=== PATIENT | male | born 1975 | race Caucasian/White ===

== ENCOUNTER 2020-10-15 13:29 | Outpatient (RCR) | payer OTHER, SELFPAY | END 2020-12-04 23:59 | LOC: IMMUN 13:29 | PROVIDERS: PCP Family Medicine; Visit Provider Family Medicine | DX: Z23 Encounter for immunization (principal) | CPT/HCPCS: 0001A; 91300 ==

== ENCOUNTER → 2022-07-14 | Outpatient (CLI) | payer OTHER, SELFPAY | END | disposition home or self-care (01) | LOC: SL 20:02 | PROVIDERS: PCP Family Medicine; Referring Provider Internal Medicine Pulmonary Disease; Visit Provider Internal Medicine Pulmonary Disease | DX: G47.10 Hypersomnia, unspecified (principal) | CPT/HCPCS: 95810 ==

== ENCOUNTER → 2022-08-18 | Outpatient (CLI) | payer OTHER, SELFPAY | END | disposition home or self-care (01) | LOC: SL 19:57 | PROVIDERS: PCP Family Medicine; Referring Provider Internal Medicine Pulmonary Disease; Visit Provider Internal Medicine Pulmonary Disease | DX: G47.10 Hypersomnia, unspecified (principal) | CPT/HCPCS: 95811 ==

== ENCOUNTER → 2023-06-28 | Outpatient (CLI) | payer OTHER, SELFPAY ==
[2023-06-28 16:23] LABS: Absolute Lymphocyte Count 2.54 X10^3/uL (0.83-4.51); Absolute Neutrophil Count 4.7 X10^3/uL (2.0-7.7); Basophil# 0.04 X10^3/uL; Basophil% 0.5 % (0-1); Eosinophil# 0.12 X10^3/uL; Eosinophils% 1.5 % (0-5); Hemoglobin 16.1 g/dL (13.0-16.5); Lymphocyte # 2.54 X10^3/ul (0.83-4.51); Lymphocyte % 31.9 % (19-41); Mean Corp Hgb Conc 32.9 g/dL (32-36); Mean Corpuscular Volume 88.1 fL (80-94); Monocyte# 0.56 X10^3/uL; NRBC Flagged by Analyzer 0 % (0-5); Neutrophil # 4.67 X10^3/uL (2.7-7.7); Neutrophil % 58.8 % (47-70); Platelet Count 235 K/mm3 (150-450); RBC Distribution Width SD 38.8 fl (35.1-43.9); Red Blood Count 5.56 M/mm3 (4.6-6.2)
[2023-06-28 17:11] LABS: ALB/GLOB Ratio 1.2 RATIO (0.9-2.4); AST(SGOT) 57 U/L (15-37); Alanine Aminotransfer ALT/SGPT 110 U/L (16-61); Albumin, Serum 4.2 g/dL (3.2-5.0); Alkaline Phosphatase 59 U/L (45-117); Anion Gap 4 (5-15); BUN 11 mg/dL (7-18); BUN/Creat Ratio 11.4 RATIO (10-20); Calcium,Total 9.6 mg/dL (8.5-10.1); Chloride 105 mmol/L (98-107); Cholesterol 178 mg/dL (200); Creatinine, Serum 0.96 mg/dL (0.70-1.30); EST Glomerular Filtration Rate 89 mL/min (>60); Est Glom Filt Rate - Afr Amer 108 mL/min (>60); Globulin 3.4 g/dL (2.2-4.2); Glucose 84 mg/dL (74-106); High Density Lipoprotein 57 mg/dL; Potassium 3.8 mmol/L (3.5-5.1); Protein, Total 7.6 g/dL (6.4-8.2); Sodium Level 138 mmol/L (136-145); Thyroid Stim Hormone (TSH) 1.41 uIU/mL (0.358-3.74); Triglycerides 75 mg/dL; Very Low Density Lipoprotein 15 mg/dL (5-40)
--- OUTSIDE RECORDS SUMMARY | 2023-06-28 18:54 | XMS RPT_ITS | CCD ---
Author Name Unknown Address [address] [place] [address] Organization [facility] Care Team Providers Care Websphere Administrator Name Role Phone Brent NICE, Olivia Chowdhury Primary Care Provider RUIZ LAWTON DO Attending Unavailable RUIZ LAWTON DO Admitting Unavailable HUDDLESTON [phone], TORI Consulting Unavail able OLIVIA KENNEDY Primary Care Unavailable MADISON IMPLEMENTATION ARCHITECT, KAYLEE Consulting Unavailable ALEJANDRA [phone], CHRISTIANA Márquez Consulting Unavailable OLIVIA KENNEDY Consulting Unavailable Olivia Kennedy MD Unavailable Maxx NICE, Dr. Blancas ([facility]) Unavailable [phone] Dr. Efren Velazquez MD Unavailable Candi Hyde MD Unavailable Susie Meyers PA-C Unavailable Jimmy CLERK OF COURT, Radha Francisco Unavailable Unavailable Angelica Kothari MA Unavailable Unavailable Yaneli Hinojosa PA-C Unavailable Pushpa TANNER, Jonathan Francisco Unavailable Amelia Richards MA Unavailable Unavailable Abhi ART, Annamaria Unavailable Unavailable Yaneli Li RN Unavailable Unavaila neeta Peck LPN, Jose Unavailable Unavailable Indira Sousa PA-C Unavailable [phone] Kathy DE LUNAN, Leslie Donald Unavailable Unavailab juwan Veras CLERK OF COURT, Juan Wyman Unavailable Unavailable Benjamín DE LUNAN, Cassidy Unavailable Unavailabl e Unavailable Unavailable Allergies Allergy Classification Reported Allergen(s) Allergy Type Date of Onset Reaction(s) Facility (1 source) prednisoLONE Drug Allergy 11-19-2015 Diarrhea [facility] Medications Completed/Discontinued Medications Medication Drug Class(es) Dates Sig (Normalized) Sig (Original) amoxicillin 875 mg / clavulanate 125 mg oral tablet (2 sources) Penicillin-class Antibacterial Start: 12-30-2022 End: 01-09-2023 amoxicillin 875 mg-potassium clavulanate 125 mg tablet ; 1 (one) tablet two times daily for 10 days Quantity: 20 {Tablet} Refills: 0 Ordered: 30-Dec-2022 FLORES Meyers Start: 30-Dec-2022 End: 09-Jan-2023 Status: Inactive Problems Active Problems Problem Classification Problem Date Documented Da te Episodic/Chronic Abdominal hernia (3 sources) Right inguinal hernia ; Translations: [Unilateral inguinal hernia, without obstruction or gangrene, not specified as recurrent] 05-02-2019 Episodic Acquired foot deformities (1 source) Talipes cavus; Translations: [Congenital pes cavus, right foot] Episodic Acquired foot deformities (1 source) Talipes planus; Translations: [Flat foot [pes planus] (acquired), left foot] Episodic Conditions associated with dizziness or vertigo (4 sources) Dizziness; Translations: [Dizziness and giddiness] 06-27-2023 Episodic Female infertility (3 sources) Infertile; Translations: [Infertility, female, of unspecified origin] 06-27-2023 Chronic Fever of unknown origin (2 sources) Fever; Translations: [Fever, unspecified] 05-02-2019 Episodic Influenza (2 sources) Influenza; Translations: [Influenza due to unidentified influenza virus with other respiratory manifestations] 08-27-2015 Episodic Lymphadenitis (2 sources) Axillary lymphadenopathy; Translations: [Localized enlarged lymph nodes] 05-02-2019 Episodic Other and unspecified benign neoplasm (2 sources) Hemangioma; Translations: [Hemangioma unspecified site] 05-02-2019 Episodic Other injuries and conditions due to external causes (2 sources) Unspecified injury of nose, initial encounter; Translations: [UNSPECIFIED INJURY NOSE INITIAL ENC] Onset: 12-31-2021 Episodic Other lower respiratory disease (2 sources) Snoring; Translations: [Snoring] 06-27-2023 Episodic Other non-traumatic joint disorders (1 source) Arthralgia of the ankle and/or foot; Translations: [Pain in right ankle and joints of right foot] Episodic Other nutritional; endocrine; and metabolic disorders (2 sources) Body mass index 30+ - obesity; Translations: [Body mass index (BMI) 30.0-30.9, adult] 05-02-2019 Chronic Other nutritional; endocrine; and metabolic disorders (2 sources) Overweight in adulthood with body mass index of 25 or more but less than 30; Translations: [Body mass index (BMI) 28.0-28.9, adult] 05-02-2019 Episodic Other screening for suspected conditions (not mental disorders or infectious disease) (15 sources) Other specified abnormal findings of blood chemistry; Translations: [Other abnormal blood chemistry] 06-27-2023 Episodic Other skin disorders (4 sources) Sebaceous cyst of skin; Translations: [Sebaceous cyst] 05-02-2019 Episodic Other upper respiratory disease (2 sources) Nasal congestion; Translations: [Nasal congestion] 06-27-2023 Episodic Other upper respiratory infections (2 sources) Upper respiratory infection; Translations: [Acute upper respiratory infection, unspecified] 12-30-2022 Episodic Residual codes; unclassified (2 sources) Influenza vaccination declined; Translations: [Immunization not carried out because of patient refusal] 05-02-2019 Episodic Spondylosis; intervertebral disc disorders; other back problems (2 sources) Lumbar radiculopathy; Translations: [Radiculopathy, lumbar region] 06-27-2023 Episodic Unclassified (1 source) buldging disc - pt says he has chronic problems with his back, but today his lwoer back started to hurt pt said his back went out this am-- he left workpt then went to chiro in [facility], he did xrays and called it a disc bulge - they did xrays there he told them he needed a steroid for inflammation reviewed by [facility] 03-01-2021 Unclassified (1 source) Well adult male - The patient feels well with minor complaints (states that he has back issues but otherwise feels good. Sees chiropractor to manage these back problems.), has good energy level and is sleeping well (will wake up once a night to use the bathroom). The patient has a balanced diet and takes no supplemental vitamins & iron. The patient exercises none (is active at work). The patient sleeps 8 hours per night. Note for Well adult male : Weight is down to 206 today, Pt has lost 32lbs since 03/2020.Is fasting today for labs. Would like a copy of H&P and also a copy of lab results mailed to him for his workplace. 01-22-2021 Viral infection (2 sources) Disease caused by 2019-nCoV; Translations: [COVID-19] 06-27-2023 Episodic Past or Other Problems Problem Classification Problem Date Documented Da te Episodic/Chronic Unclassified (1 source) Dizziness - The onset of the dizziness has been gradual and has been occurring in an intermittent pattern for 1 week (More persistent in the last week, but started 2-3 weeks ago.). The course has been recurrent. The dizziness is characterized as lightheadedness and feeling in the head. The dizziness is precipitated by position change and standing suddenly. There has been no associated nausea, vomiting, headache, fever, upper respiratory infection symptoms, ear pain, ear fullness, neck pain, neck stiffness or visual changes. There has been no associated anxiety, fever, headache, loss of balance, loss of hearing, nausea, palpitations, syncope or vomiting. Note for Dizziness : Patient reports that his symptoms are usually worse in the morning.He reports that it feels like he is floating. 06-27-2023 Unclassified (1 source) Cold Symptoms - Symptoms include sneezing, nasal congestion, runny nose, sore throat, productive cough and facial pain, but do not include ear pain, dry cough, wheezing, fever, chills, general malaise or headache. The onset was gradual 2 week(s) ago. The symptoms occur frequently. The patient describes this as moderate in severity and unchanged. Current treatment includes non-prescription cold medication, allergy medications and home remedies. The patient has been exposed to an individual with similar symptoms (Patient's ). Patient denies history of seasonal allergies, recurrent sinusitis, recurrent strep pharyngitis, asthma, tonsillectomy or recurrent ear infections. 12-30-2022 Unclassified (1 source) Cold Symptoms - Symptoms include nasal congestion, runny nose, sore throat, fever and facial pain. The onset was 1 week(s) ago. The patient describes this as mild. Current treatment includes non-prescription cold medication (OTC cold medication). 11-21-2022 Unclassified (1 source) Follow up laboratory test results - Lab results returned on : (06-17-22) . Note for Laboratory test results follow-up : Abnormal ALT. Had left side back pain for a few days which has now resolved. 08-09-2022 Unclassified (1 source) Well adult male - The patient feels well with minor complaints, has good energy level and is sleeping well ( had noticed that tosses and turns alot during the night. He reports that this turning does not often wake him. He also denies any jerking or uncontrolled movements of his legs that wake him. He does snore. He wears the breathe right strips that help with the snoring. He does not wake up during the night gasping and his has not noted him stop breathing during his sleep. He reports that he usually does not wake up often during the night and feels resting when he wakes in the morning. Would like to discuss having a possible sleep study test done at [facility]-- works there.). The patient has a balanced diet and takes supplemental vitamins (Multivitamin, CoQ10.). The patient does not exercise. The patient sleeps 8 hours per night. Note for Well adult male : Last Lipid and CMP 01/2021.No previous colonoscopy. He recently had labs done through his workplace. Will be having this done again in Jun 2022. Is fasting today. 03-18-2022 Unclassified (1 source) Diarrhea - The onset of the diarrhea has been acute and has been occurring in an intermittent pattern for 2 weeks. The course has been recurrent. The stools are watery. The frequency of bowel movements has been per day. The symptoms have been associated with vomiting (September 20), while the symptoms have not been associated with abdominal pain or nausea. Note for Diarrhea : Tested positive for Covid last week as did his ( she had resp sx ) reviewed by [facility] 10-12-2021 Unclassified (1 source) Well adult male - The patient feels well with no complaints, has good energy level and is sleeping well. The patient has a balanced diet and takes no supplemental vitamins & iron. The patient does not exercise. The patient sleeps 8 hours per night. Note for Well adult male : has no concerns for today. Here for a wellness exam for workplace. Is fasting today.Reviewed by Susie Meyers PA-C. 03-30-2020 Unclassified (1 source) Dizziness - The onset of the dizziness has been acute and has been occurring in a persistent pattern for 3 days. The course has been increasing. The dizziness is characterized as lightheadedness ( feels like he is floating ), spinning of the environment and feeling in the head. The dizziness is precipitated by boat ride (was on ship for 9 days - dizziness did not start through until he was off the ship for 3 days). There has been no associated nausea, vomiting, headache, fever, upper respiratory infection symptoms, tinnitus, ear pain, ear fullness, neck pain, neck stiffness, visual changes, facial paralysis or falling episodes. The dizziness is exacerbated by standing. There has been no associated diplopia, facial paralysis, fever, headache, loss of balance, palpitations, paresthesia, seizures, syncope or tinnitus. 05-02-2019 Unclassified (1 source) lumps under arm pits - Patient is here complaining of lumps in his armpits since the weekend. On Monday he started with a fever (around 101) - has been having this intermittently with night sweats. Weight is down 7 pounds (has been using air fryer rather than frying foods) since May. He started taking ibuprofen, tylenol, and emergen-C. Has taken ibuprofen twice today and has felt really good. Swelling and pain is going down in the armpits. No recent cold symptoms.No cat scratches.No tick bites. Swam in a pool recently.Prediabetic on last labs. 10-13-2017 Unclassified (1 source) Follow up laboratory test results - Lab results returned on : (04/2017) . Note for Laboratory test results follow-up : Had lipid and glucose thorugh work. Would like to discuss results. reviewed by [facility] 05-23-2017 Unclassified (1 source) Evaluate Lesions - Pt here today to have couple lesions evaluated. Has 1 on upper right side of neck. He noticed this last week and it had bigger and more inflamed. Today it looks dried and scaly. Not as painful as it had been. The other lesion is on top of left side of scalp. He states that he has had this one for awhile but did not become inflamed until this past Monday. It did appear larger and had a white center until it drained on Monday. This one is still sore and appears to be dry and scabbed over. He has not used anything on this other than keeping them clean and dry. reviewed by [facility] 03-07-2016 Unclassified (1 source) Cold Symptoms - Symptoms include nasal congestion, runny nose, dry cough, fever, chills, general malaise and facial pain, but do not include ear pain or sore throat. The onset was gradual 4 day(s) ago. The symptoms occur constantly. The patient describes this as moderate in severity and worsening. Current treatment includes non-prescription cold medication (dayquil and theraflu). Risk factors do not include smoking. The patient has been exposed to an individual with similar symptoms, but has not been exposed to secondhand smoke. Patient denies history of tonsillectomy. 08-27-2015 Unclassified (1 source) Cold Symptoms - Symptoms include runny nose, sore throat, productive cough, fever (low grade), chills and general malaise, but do not include ear pain. The onset was sudden 5 day(s) ago. The symptoms occur constantly. The patient describes this as moderate in severity and unchanged. Note for Upper respiratory infection : Was to [facility] yesterday and given prescription for Zpack 10 day course. reviewed by B 06-24-2014 Unclassified (1 source) Sebaceous Cyst Removal - Sebaceous Cyst on back of head. Here for removal. See previous note 07-02-2013 Unclassified (1 source) Cyst on head - Cyst on back of head for several years and getting larger. Would also like to have mole on back of head checked. Both have been present for severalyears. He alsoc/o a lumpin the R groin for severalyears , rarely painful. He suspects a hernia. 06-26-2013 Results Test Name Value Interpretation Reference Range Facil ity Vital Signs Date Time Vital Sign Value Performing Clinician Faci lity 06-27-2023 15:25-0500 Diastolic blood pressure 78 mm[Hg] Amelia Richards MA [facility], [employer] [facility] [employer]. Encounters Encounter Date Encounter Type Care Provider Facility Start: 06-27-2023 End: 06-27-2023 Office outpatient visit 15 minutes Olivia Kennedy MD [facility] Start: 12-30-2022 End: 12-30-2022 Office outpatient visit 15 minutes Olivia Kennedy MD Work Phone: [employer] Start: 12-30-2022 End: 12-30-2022 Orders Olivia Kennedy MD Work Phone: [employer] Start: 11-21-2022 End: 11-21-2022 Office outpatient visit 15 minutes Olivia Kennedy MD Work Phone: [employer] Start: 08-09-2022 End: 08-09-2022 Office outpatient visit 15 minutes Olivia Kennedy MD Work Phone: [employer] Start: 03-18-2022 End: 03-18-2022 Periodic preventive med est patient 40-64yrs Olivia Kennedy MD Work Phone: [employer] Start: 03-18-2022 End: 03-18-2022 Physical examination Olivia Kennedy MD Work Phone: [employer]; [employer] Start: 12-31-2021 End: 01-01-2022 ambulatory [facility] Facility:[facility] Start: 11-12-2021 End: 11-12-2021 Patient encounter procedure Bryon Ehsan Work Phone: Podiatry Procedures Date Procedure Procedure Detail Performing Clinician Start: 03-18-2022 End: 03-18-2022 Depression screening Olivia Kennedy MD Work Phone: Start: 03-18-2022 End: 03-18-2022 Scr dep neg, no plan reqd Olivia Kennedy MD Work Phone: Start: 01-22-2021 End: 01-22-2021 Depression screening Olivia Kennedy MD Work Phone: Start: 01-22-2021 End: 01-22-2021 Lab findings surveillance Amelia Pierce Plan of Treatment Date Care Activity Detail Author Start: 06-27-2023 Lipid panel LIPID PANEL ([id number]) Start: 27-Jun-2023 15:40 Request [employer]; [employer] Start: 06-27-2023 Assay of thyroid stimulating hormone tsh TSH W/ REFL FREE T4 ([id number]) ([id number]) Start: 27-Jun-2023 15:40 Request [employer]; [employer] Start: 06-27-2023 Comprehensive metabo lic panel CMP w/ GFR* ([id number]) Start: 27-Jun-2023 15:39 Request [employer]; [employer] Start: 06-27-2023 Blood count complete auto&auto difrntl wbc CBC, PLATELETS & AUT DIFF (F) (03880) Start: 27-Jun-2023 15:39 Request [employer]; [employer] Start: 03-18-2022 End: 03-21-2022 Polysom 6/>yrs sleep 4/> addl genevieve attnd Sleep Study Date: 18-Mar-2022 [employer]; [employer] Start: 01-13-2022 Influenza vaccination INFLUENZA (#1) [facility] Start: 11-18-2011 LIPID SCREEN LIPID SCREEN [facility] Start: 11-18-1995 Urine microalbumin profile DTAP,TDAP,TD (1 - Tdap) [facility] Start: 1994 HEPATITIS C SCREENING HEPATITIS C [facility] Start: 1994 HIV SCREENING HIV SCREENING [facility] Start: 1988 Adult depression screening assessment DEPRESSION SCREENING [facility] Start: 05-20-1977 COVID-19 VACCINE (#1) COVID-19 VACCI NE (#1) [facility] Immunizations Immunization Date Immunization Notes Care Provider Fa cility 03-14-2022 influenza, injectabl e, quadrivalent, contains preservative Olivia Kennedy MD Work Phone: [employer]; [employer] Payers Date Payer Category Payer Unknown MMO MMO [employer] [id number] 2021-Present [phone] [address] [address] [place] [address] Indemnity [id number] 1975 Unknown [id number] 1959 Unknown [id number] Unknown [employer] Social History Date Type Detail Facility Start: 11-19-2015 Tobacco smoking stat us [facility] Never smoked tobacco [facility] Start: 11-19-2015 Tobacco use and exposure Smokeless tobacco non-user [facility] Start: 11-12-2021 Alcohol intake Current drinke r of alcohol (finding) [facility] Start: 11-12-2021 [facility] [employer] Start: 1975 Sex Assigned At Not on file [facility] Start: 11-02-2021 End: 11-12-2021 Exposure to SARS-CoV-2 (event) Not sure [facility] Alcohol Use: Alcohol Use: ; 7 or fewer drinks per week. [employer] Tobacco Use: Tobacco Use: ; N ever smoker. [employer]. Male [facility] [employer] Work Phone: Occasional tobac co smoker [employer] Work Phone: Ex-smoker [employer] Work Phone: Progress note 11-12-2021 Note Date & Type Note Facility 11-12-2021 Note HNO ID: [id number] Author: Diann Wood RN Service: ? Author Type: ? Type: Progress Notes Filed: 11/12/2021 10:41 AM Note Text: Per Alexandr Bain was provided with a pair of Power Step original full length inserts, size 10 -10 1/2, and instructed/educated in its application, wear, and care. All questions were answered, and patient was able to demonstrate competence with the necessary skills to utilize the above equipment. Diann Wood RN [facility] Progress note 11-12-2021 Note Date & Type Note Facility 11-12-2021 Note HNO ID: [id number] Author: Bryon Gerardduran Service: ? Author Type: Physician Type: Progress Notes Filed: 11/12/2021 9:58 AM Note Text: Consultation requested by Dr. Kennedy for an opinion regarding foot pain. My final recommendations will be communicated back to the requesting physician by way of shared Medical record or letter to requesting physician via US mail. Initial Podiatric Office Visit: Chief Complaint: This 45 year old male who presents with chief complaint:right foot and arch pain HPI Patient presents to clinic for evaluation of right foot. Patient states he has been experiencing pain in the plantar medial arch of his right foot. He states the pain is a more discomfort. He has noticed the discomfort for about 1 month but worse since this past Monday. He did try some inserts which did help but the pain is starting to get worse . Patient states he gets the pain most severe when he is working on concrete floors. He has been off work since Monday and the pain is not as bad. Patient is not currently taking medication for the pain. PAIN EVALUATION No data found in the last 1 encounters. No results found for: HBA1C PCP: Olivia Kennedy MD History reviewed. No pertinent past medical history. Current Outpatient Medications Medication Sig - methylPREDNISolone (MEDROL, JUSTYN,) 4 mg Dose-Pack Take by mouth per package instructions (Patient not taking: Reported on 11/12/2021 ) No current facility-administered medications for this visit. ALLERGIES Allergen Reactions - Prednisolone Diarrhea PAST SURGICAL HISTORY Procedure Laterality Date - PAST SURGICAL HISTORY OF Left Surgery for cat scratch fever No family history on file. Social History Tobacco Use - Smoking status: Never Smoker - Smokeless tobacco: Never Used Vaping Use - Vaping Use: Never used Substance Use Topics - Alcohol use: Yes Alcohol/week: 24.0 standard drinks Types: 24 Cans of Beer (12oz) per week - Drug use: Not Currently REVIEW OF SYSTEMS GENERAL: Negative for Malaise, significant weight loss, fever RESPIRATORY: Negative for cough, wheezing and shortness of breath CARDIOVASCULAR: Negative for chest pain, leg swelling and palpitations GI: Negative for abdominal discomfort, blood in stools or black stools and change in bowel habits : Negative for dysuria, frequency and incontinence MUSCULOSKELETAL: Negative for joint pain or swelling, back pain, and muscle pain. SKIN: Negative for lesions, rash, and itching. HEMATOLOGY/LYMPHOLOGY Negative for prolonged bleeding, bruising easily, and swollen nodes. ENDOCRINE: Negative for cold or heat intolerance, polyuria, polydipsia and goiter. NEURO: negative Physical Exam: Constitutional: Pt is a well developed 45 year old male who is alert, oriented and cooperative Eyes: Following during examination. No redness or drainage. Respiratory: RR normal and nonlabored. Even breathing. No evidence of distress or shortness of breath. Psychology: Patient is engaged during conversation. Normal affect and mood. Does not appear depressed or anxious during encounter. Vascular: Dorsalis pedis and posterior tibial pulses palpable as b/l Capillary Fill time < 5 seconds to digits 1-5 b/l Skin temperature warm to warm proximal to distal b/l Hair growth present to digits Neurological: intact light touch/epicritic sensation - tinel b/l intact protective sensation no significant neurological deficits Dermatological: Nails 1-5 b/l appear normal. Webspaces clean and dry 1-4 b/l. Skin appears well hydrated and supple. good color, texture, turgor. No open lesions present. No callosities present. Musculoskeletal/Orthopaedic: Patient has pain to palpation of right lateral arch Foot type is slight cavus right and slight pronated left structurally AJ ROM is full with knee extended and flexed 1st MPJ is full when loaded and no pain or crepitus are noted with ROM. MTJ, STJ are full and free of pain and crepitus. +5/5 muscle strength dorsiflexion, plantarflexion, inversion, eversion b/l Radiographs: n/a ASSESSMENT: (Q66.71) Pes cavus of right foot (primary encounter diagnosis) (M21.42) Pes planus of left foot (M25.571) Pain in joint involving right ankle and foot PLAN: 1. History and physical examination performed. 2. Recommend stretching of arch daily 3. Will dispense powerstep inserts 4. Custom orthotics ordered 5. If pain fails to improve, consider follow-up Bryon Moser DPM Podiatry [address] [address] Dept: [phone] Dept [facility] History of Present illness Narrative 11-12-2021 Diann Wood RN - 11/12/2021 10:40 AM EDTMattyessi Moser - 11/12/2021 9:49 AM EDT Note Date & Type Note Facility 11-12-2021 History of Presen t illness Narrative Per Dr. Moser, Alexandr was provided with a pair of Power Step original full length inserts, size 10 -10 1/2, and instructed/educated in its application, wear, and care. All questions were answered, and patient was able to demonstrate competence with the necessary skills to utilize the above equipment. Diann Wood RN Consultation requested by Dr. Kennedy for an opinion regarding foot pain. My final recommendations will be communicated back to the requesting physician by way of shared Medical record or letter to requesting physician via US mail. Initial Podiatric Office Visit: Chief Complaint: This 45 year old male who presents with chief complaint:right foot and arch pain HPI Patient presents to clinic for evaluation of right foot. Patient states he has been experiencing pain in the plantar medial arch of his right foot. He states the pain is a more discomfort. He has noticed the discomfort for about 1 month but worse since this past Monday. He did try some inserts which did help but the pain is starting to get worse . Patient states he gets the pain most severe when he is working on concrete floors. He has been off work since Monday and the pain is not as bad. Patient is not currently taking medication for the pain. PAIN EVALUATION No data found in the last 1 encounters. No results found for: HBA1C PCP: Olivia Kennedy MD History reviewed. No pertinent past medical history. Current Outpatient Medications Medication Sig methylPREDNISolone (MEDROL, JUSTYN,) 4 mg Dose-Pack Take by mouth per package instructions (Patient not taking: Reported on 11/12/2021 ) No current facility-administered medications for this visit. ALLERGIES Allergen Reactions Prednisolone Diarrhea PAST SURGICAL HISTORY Procedure Laterality Date PAST SURGICAL HISTORY OF Left Surgery for cat scratch fever No family history on file. Social History Tobacco Use Smoking status: Never Smoker Smokeless tobacco: Never Used Vaping Use Vaping Use: Never used Substance Use Topics Alcohol use: Yes Alcohol/week: 24.0 standard drinks Types: 24 Cans of Beer (12oz) per week Drug use: Not Currently REVIEW OF SYSTEMS GENERAL: Negative for Malaise, significant weight loss, fever RESPIRATORY: Negative for cough, wheezing and shortness of breath CARDIOVASCULAR: Negative for chest pain, leg swelling and palpitations GI: Negative for abdominal discomfort, blood in stools or black stools and change in bowel habits : Negative for dysuria, frequency and incontinence MUSCULOSKELETAL: Negative for joint pain or swelling, back pain, and muscle pain. SKIN: Negative for lesions, rash, and itching. HEMATOLOGY/LYMPHOLOGY Negative for prolonged bleeding, bruising easily, and swollen nodes. ENDOCRINE: Negative for cold or heat intolerance, polyuria, polydipsia and goiter. NEURO: negative Physical Exam: Constitutional: Pt is a well developed 45 year old male who is alert, oriented and cooperative Eyes: Following during examination. No redness or drainage. Respiratory: RR normal and nonlabored. Even breathing. No evidence of distress or shortness of breath. Psychology: Patient is engaged during conversation. Normal affect and mood. Does not appear depressed or anxious during encounter. Vascular: Dorsalis pedis and posterior tibial pulses palpable as b/l Capillary Fill time < 5 seconds to digits 1-5 b/l Skin temperature warm to warm proximal to distal b/l Hair growth present to digits Neurological: intact light touch/epicritic sensation - tinel b/l intact protective sensation no significant neurological deficits Dermatological: Nails 1-5 b/l appear normal. Webspaces clean and dry 1-4 b/l. Skin appears well hydrated and supple. good color, texture, turgor. No open lesions present. No callosities present. Musculoskeletal/Orthopaedic: Patient has pain to palpation of right lateral arch Foot type is slight cavus right and slight pronated left structurally AJ ROM is full with knee extended and flexed 1st MPJ is full when loaded and no pain or crepitus are noted with ROM. MTJ, STJ are full and free of pain and crepitus. +5/5 muscle strength dorsiflexion, plantarflexion, inversion, eversion b/l Radiographs: n/a ASSESSMENT: (Q66.71) Pes cavus of right foot (primary encounter diagnosis) (M21.42) Pes planus of left foot (M25.571) Pain in joint involving right ankle and foot PLAN: 1. History and physical examination performed. 2. Recommend stretching of arch daily 3. Will dispense powerstep inserts 4. Custom orthotics ordered 5. If pain fails to improve, consider follow-up Bryon Moser DPM Podiatry [address] [facility] [address] Dept: [phone] Dept documented in this encounter [facility] Instructions 11-12-2021 Patient Instructions Note Date & Type Note Facility 11-12-2021 Instructions Bryon Moser - 11/12/2021 9:53 AM EDT Powerstep Original Full length. Can purchase at [employer] here in [place], [employer] in [place] or [place]. Also can find in [place] in [facility]. Powersteps can also be purchased online, starting around $25.00 If you have a metatarsal or dancer pad for your feet apply the pad directly to the insole so you can interchange between your shoes. Find a shoe with a removable insole and take this out and replace with your powerstep insole. Always bring powersteps with you when shopping for shoes so that you can make sure that everything fits well together documented in this encounter [facility] Evaluation note Note Date & Type Note Facility documented in this encounter [facility] Summary Purpose Family History Cancer Status:Active Comments:Materna l Grandfather. Diabetes Mellitus Type II Status:Active Commen ts:paternal great uncle, maternal great uncle Hypertension Status:Active Comments:Father. Lung Cancer Status:Active Comments:grandmo ther Osteoarthritis Status:Active Comments:grandmo ther Advance Directives No Advanced Directives Records FoundNo Advanced Directives Records FoundNo Advanced Directives Records Found Additional Source Comments Source Comments (unrecognize d section and content) In the event this informatio n is protected by the Federal Confidentiality of Alcohol and Drug Abuse Patient Records regulations: The Federal rules restrict any use of the information to criminally investigate or prosecute any alcohol or drug abuse patient.[facility] Reason for Visit (unrecogniz ed section and content) Care Teams (unrecognized sec tion and content) (unrecognized sect ion and content) No Status Records FoundNo Status Records FoundNo Status Records Found INFORMATION SOURCE (unrecogn ized section and content) DATE CREATED AUTHOR AUTHOR'S ORGANIZ ATION 01/06/2022 [facility] DATE CREATED AUTHOR AUTHOR'S ORGANIZ ATION 12/31/2022 [facility] FOR RECORDS PERTAINING TO PATIENTS WHO ARE OR HAVE BEEN ENROLLED IN A CHEMICAL DEPENDENCY/SUBSTANCEABUSE PROGRAM, SOME INFORMATION MAY BE OMITTED. This clinical summary was aggregated from multiple sources. Caution should be exercised in using it in the provision of clinical care. This summary normalizes information from multiple sources, and as a consequence, information in this document may materially change the coding, format and clinical context of patient data. In addition, data may be omitted in some cases. CLINICAL DECISIONS SHOULD BE BASED ON THE PRIMARY CLINICAL RECORDS. [facility] [employer] [facility]. provides no warranty or guarantee of the accuracy or completeness of information in this document.
== END | disposition home or self-care (01) ==
PROVIDERS: PCP Family Medicine
DX: Z13.6 Encounter for screening for cardiovascular disorders (principal); R42 Dizziness and giddiness
CPT/HCPCS: 36415; 80053; 80061; 84439; 84443; 85025

== ENCOUNTER → 2023-07-13 | Outpatient (CLI) | payer OTHER, SELFPAY ==
--- NOTE | 2023-07-13 09:19 | US_ITS ---
STUDY: ABDOMINAL ULTRASOUND - RIGHT UPPER QUADRANT REASON FOR VISIT: Male, 47 years old Abnormal levels of other serum enzymes TECHNIQUE: Ultrasound evaluation of the right upper quadrant was performed with real-time and static stein-scale imaging. TECHNICAL QUALITY: Adequate. COMPARISON: None. FINDINGS: Liver: The liver is enlarged and measures 19.2 cm. There is increased echogenicity consistent with fatty infiltration. The bile ducts are within normal limits. There is hepatic color flow. The direction of portal flow is hepatopetal. There is no demonstrated mass lesion. Gallbladder: Normal distended gallbladder. The gallbladder wall measures 2 mm. There is a negative sonographic Fam''s sign. There is no pericholecystic fluid. There are no gallstones. Common Bile Duct (C.B.D.): The common bile duct measures 5.2 mm. Pancreas: Normal size of the head, body of the pancreas. The tail portion is obscured due to overlying bowel gas. There is normal echogenicity of the pancreas. There is no demonstrated pancreatic mass or cyst. Right Kidney: Normal size of the right kidney. The right kidney measures 9.8 cm x 3.9 cm x 6.2 cm. Normal renal cortex. The right cortex measures 2.0 cm. There is no demonstrated renal mass or cyst. There is no right hydronephrosis. US/Liver IMPRESSION: Hepatomegaly and diffuse fatty infiltration of the liver. Electronically Signed: Jacob Manjarrez MD at 15:02 EST ,
== END | disposition home or self-care (01) ==
LOC: US 09:18
PROVIDERS: PCP Family Medicine
DX: R74.8 Abnormal levels of other serum enzymes (principal)
CPT/HCPCS: 76705

== ENCOUNTER → 2024-08-10 | Outpatient (CLI) | payer OTHER, SELFPAY ==
[2024-08-10 10:12] LABS: ALB/GLOB Ratio 1.7 RATIO (0.9-2.4); AST(SGOT) 38 U/L (<=37); Alanine Aminotransfer ALT/SGPT 60 U/L (<=46); Albumin, Serum 4.6 g/dL (3.5-5.0); Alkaline Phosphatase 55 U/L (40-129); Anion Gap 12 (5-15); BUN 13 mg/dL (4-19); BUN/Creat Ratio 13.3 RATIO (10-20); Calcium,Total 9.7 mg/dL (7.6-11.0); Carbon Dioxide 23.3 mmol/L (21.0-32.0); Chloride 105 mmol/L (98-108); Cholesterol 166 mg/dL (<=200); Creatinine, Serum 0.96 mg/dL (0.70-1.20); EST Glomerular Filtration Rate 98 (>60); Globulin 2.7 g/dL (2.2-4.2); Glucose 106 mg/dL (70-99); High Density Lipoprotein 59 mg/dL; Low Density Lipoprotein Calc. 95 mg/dL; PSA,Total - Annual Screen 0.45 ng/mL (0.02-4.00); Potassium 4.4 mmol/L (3.3-5.1); Protein, Total 7.3 g/dL (5.9-8.4); Sodium Level 140 mmol/L (133-145); Total Bilirubin 0.78 mg/dL (0.00-1.30); Triglycerides 61 mg/dL; Very Low Density Lipoprotein 12 mg/dL (5-40); cholesterol:hdl ratio screen 2.82
== END | disposition home or self-care (01) ==
LOC: LAB 07:55
PROVIDERS: PCP Family Medicine; Referring Provider Family Medicine; Visit Provider Family Medicine
DX: R74.8 Abnormal levels of other serum enzymes (principal); Z13.220 Encounter for screening for lipoid disorders; N46.9 Male infertility, unspecified
CPT/HCPCS: 36415; 80053; 80061; 84153; G0103

== ENCOUNTER 2024-11-22 10:48 | Day surgery (SDC) | payer OTHER, SELFPAY ==
[2024-11-22] MEDS: Lactated Ringers 1,000 ML 15 ML IV (11:06)
[2024-11-22 11:07] VITALS: BP 147/95; PULSE 71; RESP 16; TEMP 37.1; O2SAT 96; BMI 30.2
[2024-11-22 11:18] VITALS: BP 147/95; PULSE 71; RESP 16; TEMP 37.1; O2SAT 96
--- NOTE | 2024-11-22 11:18 | PRE.ANES_ITS ---
ASA Classification* ASA Classification ASA Classification: 2 Assessment & Plan Anesthesia* Anesthesia Assessment Anesthesia Assessment: Discussed sedation and/or anesthesia options, risks, benefits, and alternatives with patient/parents/legal guardian/POA. Questions invited. The patient/parents/legal guardian/POA seems to understand and agrees to proceed with anesthesia plan. Reviewed the physical assessment, medical history, allergy history and patient home medications list prior to surgery/procedure/anesthetic and documented any changes. Performed airway and anesthesia risk assessments. Anesthesia Type Anesthesia Type: MAC Anesthesia Focused Assessment* Temperature: 98.7 F Pulse Rate: 71 Blood Pressure: 147/95 Respiratory Rate: 16 Pulse Ox: 96 Airway Assessment Mouth opens: >3 cm Mallampati Score: II Labs Anesthesia Preop lab: CBC WBC 8.0 K/mm3 (4.4-11.0) 06/28/23 15:22 06/28/23 RBC 5.56 M/mm3 (4.6-6.2) 06/28/23 15:22 06/28/23 Hgb 16.1 g/dL (13.0-16.5) 06/28/23 15:22 06/28/23 Hct 49.0 % (40-54) 06/28/23 15:22 06/28/23 Plt Count 235 K/mm3 (150-450) 06/28/23 15:22 06/28/23 CHEMISTRY Potassium 4.4 mmol/L (3.3-5.1) 08/10/24 08:00 08/10/24 Sodium 140 mmol/L (133-145) 08/10/24 08:00 08/10/24 BUN 13 mg/dL (4-19) 08/10/24 08:00 08/10/24 Creatinine 0.96 mg/dL (0.70-1.20) 08/10/24 08:00 08/10/24 Glucose 106 mg/dL (70-99) H 08/10/24 08:00 08/10/24 TSH 1.41 uIU/mL (0.358-3.74) 06/28/23 15:22 COAG Pre-Assessment Diagnosis/Proposed Procedure Planned Operative Procedure(s): COLONOSCOPY Anesthesia History Anesthesia History - bariatric coordinator: Anesthesia History - bariatric coordinator Hx Hospitalization No 11/19/24 13:58 Any Problems With Anesthesia No 11/19/24 13:58 Cholinesterase deficiency No 11/19/24 13:58 You/Your Family Experience No 11/19/24 13:58 fever (hyperthermia) with Relationship Recent Exposure to Contagious No 11/22/24 11:07 Disease Does patient have nerve No 11/19/24 13:58 stimulator Patient instructed to have device shut off --Does patient have Pacemaker No 11/22/24 11:07 or ICD? When Was Last Pacemaker Check QUESTION #4 FULL TEXT: You/Your Family Experience fever (hyperthermia) with Anesthesia Last Oral Intake Last Oral intake: Last Oral Intake NPO since 08:00 11/22/24 11:07 Meds taken in AM with sips of Yes 11/22/24 11:07 water? Meds patient instructed to prep 11/22/24 11:07 take am of surgery PONV PONV - bariatric coordinator: PONV - bariatric coordinator Female No 11/19/24 13:58 HX of Motion Sickness No 11/19/24 13:58 HX of N/V After Surgery No 11/19/24 13:58 Non-Smoker Yes 11/19/24 13:58 Duration of Surgery greater No 11/19/24 13:58 than 60 minutes Number of Risk Factors 1 11/19/24 13:58 PONV Score Low Risk 11/19/24 13:58 Height & Weight Height & Weight: Anesthesia: Height & Weight Height 6 ft 1 in 11/22/24 11:07 Weight: 104 kg 11/22/24 11:07 Body Mass Index (BMI) 30.2 11/22/24 11:07 Respiratory Assessment Respiratory Assessment - bariatric coordinator: Respiratory Tract Infection Hx - bariatric coordinator Hx Respiratory Tract Infection No 11/19/24 13:58 STOP Sleep Apnea STOP Sleep Apnea - bariatric coordinator: STOP Sleep Apnea - bariatric coordinator Hx Hypertension No 11/19/24 13:58 Hx Sleep Apnea Yes 11/19/24 13:58 CPAP Yes 11/19/24 13:58 BIPAP No 11/19/24 13:58 Do you snore loudly (louder than talking or can be heard Do you often feel tired/ fatigued/ sleepy during daytime? Has anyone observed you stop breathing during sleep? STOP Results Positive 11/19/24 13:58 QUESTION #5 FULL TEXT : Do you snore loudly (louder than talking or can be heard through closed doors)? 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 Specify any problems Hx of Preganancy in last 3 N/A 11/19/24 13:58 Months Nurse Filling Out Transfusion [email or web address] 11/19/24 13:58 & Questions: Date: 11/19/24 11/19/24 13:58 Time: 14:00 11/19/24 13:58 Patient unable to answer at this time (ie. confused, unrespo /Reproduction History /Reproductive History - bariatric coordinator: /Reproductive Hx- bariatric coordinator Hx Now Gestational Age (in weeks): EDC: Hx Hx Para Hx Section SAB Active Medications Active Medications: Current Medications Generic Name Dose Route Start Last Admin Trade Name Freq PRN Reason Stop Dose Admin Lactated Ringer's 1,000 mls @ 15 mls/hr 11/22/24 11:00 11/22/24 11:06 IV 15 mls/hr .Q48H CAROL Administration PFSH Medical History Hip dislocation, right Alcohol use Fatty liver Back pain Non-smoker CPAP (continuous positive airway pressure) dependence Hernia, inguinal Sleep apnea COVID-19 Home Medications ?Medication ?Instructions ?Recorded ?Last Taken ?Type Saccharomyces boulardii 250 mg 250 mg PO BID 09/26/24 11/19/24 History capsule (Digest Probiotic (S.boulardii)) coenzyme Q10 75 mg capsule (Ultra 75 mg PO QDAY 11/21/24 History CoQ10) Allergy/AdvReac Type Severity Reaction Status Date / Time No Known Allergies Allergy Verified 11/22/24 11:05 Social History Smoking Status: Never smoker second hand exposure: No alcohol intake: current alcohol intake frequency: a few times a month substance use type: does not use Review of Systems (Anesthesia) ROS Narrative System reviewed and no additional complaints, except as documented.
--- NOTE | 2024-11-22 12:18 | PCM.HP.STD ---
HPI - General General Date of Admission: 11/22/24 Date of Service: 11/22/24 Chief Complaint: Screening colonoscopy HPI Narrative LIZBET BONDS, is a 49 M who presentsChief Complaint: screening colonoscopy Pt here today to be scheduled for a screening colonoscopy. He has never had one before. Denies family hx of colon cancer. He denies abd pain, constipation, diarrhea, heartburn or n/v. [facility] Medical History Hip dislocation, right Alcohol use Fatty liver Back pain Non-smoker CPAP (continuous positive airway pressure) dependence Hernia, inguinal Sleep apnea COVID-19 Home Medications ?Medication ?Instructions ?Recorded ?Last Taken ?Type Saccharomyces boulardii 250 mg 250 mg PO BID 09/26/24 11/19/24 History capsule (Digest Probiotic (S.boulardii)) coenzyme Q10 75 mg capsule (Ultra 75 mg PO QDAY 09/26/24 11/21/24 History CoQ10) Allergy/AdvReac Type Severity Reaction Status Date / Time No Known Allergies Allergy Verified 11/22/24 11:05 Social History Smoking Status: Never smoker second hand exposure: No alcohol intake: current alcohol intake frequency: a few times a month substance use type: does not use ROS Constitutional Constitutional: Denies fatigue, fever(s), poor appetite, weight gain or weight loss Gastrointestinal Gastrointestinal: Denies belching, bloating, change in bowel habits, change in stool character, chewing difficulty, coffee ground emesis, constipation, cramping, diarrhea, dyspepsia, dysphagia, early satiety, excessive flatus, fecal incontinence, heartburn, hematemesis, hematochezia, hemorrhoids, loose stools, melena, nausea, odynophagia, rectal bleeding, tenesmus, vomiting or weight changes Vital Signs Vital Signs Vital Signs: 11/22/24 11:07 11/22/24 11:07 11/22/24 11:18 Temperature 98.7 F 98.7 F Temperature Source Temporal Pulse Rate 71 71 Respiratory Rate 16 16 Respiratory Pattern Normal Blood Pressure 147/95 H 147/95 H Blood Pressure Mean 112 Blood Pressure Source Monitor Blood Pressure Position Semi-Fowlers Blood Pressure Location Left Arm Pulse Ox 96 96 Oxygen Delivery Method Room Air Weight Weight: 229 lb 4.492 oz Body Mass Index (BMI) 30.2 Physical Exam Const alert, oriented x3, no apparent distress and healthy appearing General Appearance: cooperative GI normal to inspection, nondistended, normoactive bowel sounds, soft to palpation, non-tender and non-distended Percussion: normal to percussion Rectal Exam: deferred Assessment & Plan Assessment/Plan (1) Screening for colon cancer: PLAN: Assessment and Plan Assessment and Plan (1) Screening for colon cancer: Status: Acute Plan: This is a 48 yo male pt here today for establishment with [facility]. Pt here today to be scheduled for a screening colonoscopy. He has no current GI concerns. He denies family hx of colon cancer. He will be scheduled for screening colonoscopy today. -Colonoscopy -f/u as needed
[2024-11-22 13:00] VITALS: BP 133/93; BP 147/95; PULSE 69; RESP 16; TEMP 36.5; O2SAT 98
--- NOTE | 2024-11-22 13:01 | OP.COLON_ITS ---
Patient Name: Alexandr Spangler Procedure Date: 11/22/2024 12:21 PM Date of : 1975 Age: 49 Procedure: Colonoscopy Indications: Screening for colorectal malignant neoplasm Providers: Curtis Fitzpatrick DO Referring MD: Rogers Kennedy Medicines: Monitored Anesthesia Care Patient Profile: This is a 49 year old male. Refer to note in patient chart for documentation of history and physical. Last Colonoscopy: none. The patient's first colonoscopy is today. Complications: No immediate complications. Procedure: Pre-Anesthesia Assessment: - Prior to the procedure, a History and Physical was performed, and patient medications and allergies were reviewed. The patient is competent. The risks and benefits of the procedure and the sedation options and risks were discussed with the patient. All questions were answered and informed consent was obtained. Patient identification and proposed procedure were verified by the physician in the pre-procedure area. Mental Status Examination: alert and oriented. Airway Examination: normal oropharyngeal airway and neck mobility. Respiratory Examination: clear to auscultation. CV Examination: normal. Prophylactic Antibiotics: The patient does not require prophylactic antibiotics. Prior Anticoagulants: The patient has taken no anticoagulant or antiplatelet agents except for NSAID medication. ASA Grade Assessment: II - A patient with mild systemic disease. After reviewing the risks and benefits, the patient was deemed in satisfactory condition to undergo the procedure. The anesthesia plan was to use monitored anesthesia care (MAC). Immediately prior to administration of medications, the patient was re-assessed for adequacy to receive sedatives. The heart rate, respiratory rate, oxygen saturations, blood pressure, adequacy of pulmonary ventilation, and response to care were monitored throughout the procedure. The physical status of the patient was re-assessed after the procedure. After I obtained informed consent, the scope was passed under direct vision. Throughout the procedure, the patient's blood pressure, pulse, and oxygen saturations were monitored continuously. The pediatric colonoscope was introduced through the anus and advanced to the cecum, identified by appendiceal orifice and ileocecal valve. The colonoscopy was performed without difficulty. The patient tolerated the procedure well. The quality of the bowel preparation was adequate. The ileocecal valve, appendiceal orifice, and rectum were photographed. Scope In: 12:37:06 PM Scope Withdrawal Time 0 hours 11 minutes 48 seconds Scope Out: 12:55:32 PM Total Procedure Duration Time 0 hours 18 minutes 26 seconds Findings: The perianal and digital rectal examinations were normal. A few small-mouthed diverticula were found in the sigmoid colon. The exam was otherwise without abnormality on direct and retroflexion views. Impression: - Diverticulosis in the sigmoid colon. - The examination was otherwise normal on direct and retroflexion views. - No specimens collected. Recommendation: - Discharge patient to home. - Resume previous diet. - Continue present medications. - Repeat colonoscopy in 10 years for screening purposes. Procedure Code(s): --- Professional --- G0121, Colorectal cancer screening; colonoscopy on individual not meeting criteria for high risk CPT copyright 2021 [employer]. All rights reserved. The codes documented in this report are preliminary and upon geographical historian review may be revised to meet current compliance requirements. Curtis Fitzpatrick DO 11/22/2024 1:01:32 PM This report has been signed electronically. Number of Addenda: 0 Note Initiated On: 11/22/2024 12:21 PM
--- NOTE | 2024-11-22 13:02 | OP.CCLET_ITS ---
11/22/2024 Rogers Kennedy Re : Colonoscopy procedure for Alexandr Spangler Dear Brent This procedure was performed on Friday, November 22, 2024. My impressions and recommendations are as follows: Impressions : - Diverticulosis in the sigmoid colon. - The examination was otherwise normal on direct and retroflexion views. - No specimens collected. Recommendations : - Discharge patient to home. - Resume previous diet. - Continue present medications. - Repeat colonoscopy in 10 years for screening purposes. My findings are described in the full procedure note, which is enclosed. If I can be of further assistance, please feel free to contact me at . Sincerely, Curtis Fitzpatrick, 11/22/2024 1:01:32 PM This report has been signed electronically.
[2024-11-22 13:05] VITALS: BP 119/80; BP 133/93; BP 147/95; PULSE 61; PULSE 67; RESP 16; TEMP 36.2; O2SAT 97; O2SAT 99
--- NOTE | 2024-11-22 13:05 | PCM.POST.ANE ---
Anesthesia: Postop Eval I Current Vital Signs Temperature: 97.1 F Pulse Rate: 67 Blood Pressure: 133/93 Respiratory Rate: 16 Pulse Ox: 99 Oxygen Delivery Method: Room Air Assessment Airway patent: Yes Spontaneous unlabored respirations: Yes Mental status: Awake and Calm nausea: No Vomiting: No Anesthesia Complication: No Fluid Hydration Crystalloid volume administer (ml): 500 Total IV fluid infused: 500 Progress Note Anesthesia document: Postop Eval 1 completed: Yes
[2024-11-22 13:10] VITALS: BP 117/82; BP 147/95; PULSE 67; RESP 16; TEMP 36.2; O2SAT 99
--- NOTE | 2024-11-22 13:30 | PCM.POSTANE2 ---
Anesthesia Postop Eval I Sum Postop Eval Completion status Anesthesia document: Postop Eval 1 completed: Yes Anesthesia Postop Eval I Summary Anesthesia Postop Eval I Summary: Anesthesia Postop Eval I: Assessment Summary Airway patent Yes 11/22/24 13:05 [email or web address] Spontaneous unlabored Yes 11/22/24 13:05 [email or web address] respirations Mental status Awake,Calm 11/22/24 13:05 [email or web address] nausea No 11/22/24 13:05 [email or web address] Vomiting No 11/22/24 13:05 [email or web address] Anesthesia Postop Eval I: Fluid Summary Crystalloid volume administer 500 11/22/24 13:05 [email or web address] (ml) Colloids volume administered ( ml) Blood Product volume administered (ml) Total IV fluid infused 500 11/22/24 13:05 [email or web address] Anesthesia Postop Eval I: Summary Notes Anesthesia Complication No 11/22/24 13:05 [email or web address] Anesthesia Complication Comment: Post-operative progress note Anesthesia: Postop Eval II Evaluation Mental status: Awake Pain Level: 0 nausea: No Vomiting: No
[2024-11-22 13:38] VITALS: BP 147/95
== END 2024-11-22 13:40 | disposition home or self-care (01) ==
LOC: EN 10:49 → AC 10:50
PROVIDERS: PCP Family Medicine; Referring Provider Family Medicine; Visit Provider Internal Medicine Gastroenterology
PROC: 0DJD8ZZ Inspection of Lower Intestinal Tract, Via Natural or Artificial Opening Endoscopic (ICD-10-PCS; CPT 45378; principal; 2024-11-22 11:55)
DX: Z12.11 Encounter for screening for malignant neoplasm of colon (principal); K57.30 Diverticulosis of large intestine without perforation or abscess without bleeding
CPT/HCPCS: 45378; J2405